=== PATIENT | female | born 1990 | race Caucasian/White ===

== ENCOUNTER 2017-04-05 14:26 | Outpatient (CLI) | payer OTHER ==
[2017-04-05 16:32] LABS: #Basophils 0.1 thou/uL (0.0-0.2); #Eosinphils 0.1 thou/uL (0.0-0.7); #Lymphocytes 2.7 thou/uL (1.20-3.40); #Monocytes 0.6 thou/uL (0.11-0.59); #Neutrophils 6.2 thou/uL (1.40-6.50); %Basophils 0.8 % (0.0-1.0); %Eosinophils 1.1 % (0.0-10.0); %Monocytes 6.4 % (0.0-10.0); %Neutrophils 63.8 % (42.0-75.0); Hemoglobin 14.4 g/dL (12.0-16.0); Mean Corpuscular HGB CONC 33.3 g/dL (32.0-36.0); Mean Corpuscular Hemoglobin 29.2 pg (27.0-31.0); Mean Corpuscular Volume 87.7 fl (81.0-99.0); Mean Platelet Volume 6.5 fL (7.4-10.4); Platelet Count 339 thou/uL (130-400); RBC Distribution Width 11.2 % (11.5-14.5); Red Blood Cell (RBC) Count 4.93 mill/uL (4.20-5.40); White Blood Cell (WBC) Count 9.7 thou/uL (4.8-10.8)
[2017-04-05 17:05] LABS: ALT (SGPT) 11 U/L (8-55); AST (SGOT) 13 U/L (5-34); Alkaline Phosphatase 72 U/L (40-150); Anion Gap 13 mmol/L (10-20); BUN (Urea Nitrogen) 9 mg/dL (7.0-18.7); Bilirubin, Total 0.3 mg/dL (0.2-1.2); Calc. Creatinine Clearance 0 mL/min (70-130); Carbon Dioxide 24 mmol/L (22-29); Chloride 109 mmol/L (98-107); Estimated GFR-MDRD Greater than 90; Globulin 2.8 g/dL (2.4-3.5); Glucose 69 mg/dL (70-105); Potassium 4.1 mmol/L (3.5-5.1); Protein, Total 6.8 g/dL (6.0-8.3); Sodium 142 mmol/L (136-145)
== END 2017-04-05 14:27 | disposition home or self-care (01) ==
LOC: HPCALD 14:26
PROVIDERS: ATTEND Physician Assistant
DX: R55 Syncope and collapse (principal)
CPT/HCPCS: 36415; 80053; 84443; 85025

== ENCOUNTER 2017-04-05 14:28 | Outpatient (CLI) | payer OTHER | END 2017-04-05 14:29 | disposition home or self-care (01) | LOC: BUREKG 14:28 | PROVIDERS: ATTEND Physician Assistant | DX: R55 Syncope and collapse (principal) | CPT/HCPCS: 36415; 80053; 84443; 85025; 93005; 93010 ==

== ENCOUNTER 2017-04-18 07:40 | Outpatient (CLI) | payer OTHER | END 2017-04-18 07:41 | disposition home or self-care (01) | LOC: BURLAB 07:40 | PROVIDERS: ATTEND Physician Assistant | DX: E16.2 Hypoglycemia, unspecified (principal) | CPT/HCPCS: 36415; 82951 ==

== ENCOUNTER 2017-10-30 23:38 | Emergency (ER) | payer OTHER ==
[2017-10-31] MEDS ORDERED: Acetaminophen 500 MG TAB ONE (00:40)
[2017-10-31] MEDS ORDERED: Oseltamivir 75 MG CAP ONE (00:40)
== END 2017-10-31 00:42 | disposition home or self-care (01) ==
LOC: BURERS 23:38
DX: J11.1 Influenza due to unidentified influenza virus with other respiratory manifestations (principal); Q85.00 Neurofibromatosis, unspecified; F32.9 Major depressive disorder, single episode, unspecified; F17.210 Nicotine dependence, cigarettes, uncomplicated
CPT/HCPCS: 99283

== ENCOUNTER 2021-05-13 22:04 | Emergency (ER) | payer OTHER, SELFPAY ==
[2021-05-13] MEDS ORDERED: Dexamethasone 4 MG TAB ONE (23:27)
[2021-05-14 16:24] LABS: SARS-CoV-2 PCR by NAA Not Detected (NotDetected)
== END 2021-05-13 23:30 | disposition home or self-care (01) ==
LOC: BURERS 22:04
DX: R05 Cough (principal); R09.81 Nasal congestion; Z20.822 Contact with and (suspected) exposure to COVID-19; F17.210 Nicotine dependence, cigarettes, uncomplicated
CPT/HCPCS: 71045; 99283; J8540; U0003; U0005

== ENCOUNTER 2022-03-07 15:12 | Emergency (ER) | payer OTHER, SELFPAY ==
[2022-03-07] MEDS ORDERED: Neomycin-Polymyxin-Hc 7.5 ML BOT ONE (15:32)
== END 2022-03-07 15:44 | disposition home or self-care (01) ==
LOC: BURERS 15:12
DX: H10.9 Unspecified conjunctivitis (principal)
CPT/HCPCS: 99282

== ENCOUNTER 2022-04-21 23:02 | Emergency (ER) | payer SELFPAY ==
[2022-04-21] MEDS ORDERED: Ibuprofen 800 MG TAB ONE (23:18)
[2022-04-21] MEDS ORDERED: Cyclobenzaprine 10 MG TAB ONE (23:19)
== END 2022-04-21 23:25 | disposition home or self-care (01) ==
LOC: BURERS 23:02
DX: S29.012A Strain of muscle and tendon of back wall of thorax, initial encounter (principal); F17.290 Nicotine dependence, other tobacco product, uncomplicated; X58.XXXA Exposure to other specified factors, initial encounter
CPT/HCPCS: 99283

== ENCOUNTER 2022-06-13 20:56 | Emergency (ER) | payer SELFPAY | END 2022-06-13 21:20 | disposition home or self-care (01) | LOC: BURERS 20:56 | DX: B35.3 Tinea pedis (principal); F17.290 Nicotine dependence, other tobacco product, uncomplicated | CPT/HCPCS: 99283 ==

== ENCOUNTER 2022-08-27 21:13 | Emergency (ER) | payer SELFPAY ==
[2022-08-27] MEDS ORDERED: HYDROcodone/Acetaminophen 10/325 mg Tablet ONE (22:00)
[2022-08-27] MEDS ORDERED: Ampicillin 250 MG VIAL ONE (22:00)
[2022-08-27] MEDS ORDERED: Ibuprofen 800 MG TAB ONE (22:00)
[2022-08-27] MEDS ORDERED: AMOXicillin 250 MG CAP ONE (22:00)
[2022-08-27] MEDS ORDERED: AMOXicillin 250 MG CAP PO SCH (22:15)
== END 2022-08-27 22:17 | disposition home or self-care (01) ==
LOC: BURERS 21:13
DX: K08.89 Other specified disorders of teeth and supporting structures (principal); F17.290 Nicotine dependence, other tobacco product, uncomplicated
CPT/HCPCS: 99282; J0290

== ENCOUNTER 2022-12-22 18:31 | Emergency (ER) | payer SELFPAY | END 2022-12-22 18:50 | disposition home or self-care (01) | LOC: BURERS 18:31 | DX: K08.89 Other specified disorders of teeth and supporting structures (principal); F17.290 Nicotine dependence, other tobacco product, uncomplicated | CPT/HCPCS: 99282 ==

== ENCOUNTER 2023-04-18 14:03 | Emergency (ER) | payer SELFPAY | END 2023-04-18 14:44 | disposition home or self-care (01) | LOC: BURERS 14:03 | DX: S83.92XA Sprain of unspecified site of left knee, initial encounter (principal); F17.290 Nicotine dependence, other tobacco product, uncomplicated; X50.1XXA Overexertion from prolonged static or awkward postures, initial encounter | CPT/HCPCS: 99283 ==

== ENCOUNTER 2025-07-08 11:06 | Emergency (ER) | payer SELFPAY | END 2025-07-08 13:05 | disposition home or self-care (01) | LOC: BURERS 11:06 | DX: J02.9 Acute pharyngitis, unspecified (principal); J20.9 Acute bronchitis, unspecified; J32.9 Chronic sinusitis, unspecified; F17.200 Nicotine dependence, unspecified, uncomplicated | CPT/HCPCS: 87081; 87428; 87430; 99284 ==